=== PATIENT | female | born 1990 | race Caucasian/White ===

== ENCOUNTER 2018-11-18 14:33 | Outpatient (CLI) | payer MEDICAID ==
[~2018-11-18 14:33] MED LIST: HYDR-3965 PO; NO HOME MEDS; PENI500T2 PO; PHEN-786 PO
== END 2018-11-18 23:59 | disposition home or self-care (01) ==
LOC: RAD 14:33
PROVIDERS: ATTEND Family Medicine
DX: R10.2 Pelvic and perineal pain (principal); G40.909 Epilepsy, unspecified, not intractable, without status epilepticus
CPT/HCPCS: 76856

== ENCOUNTER 2019-01-15 14:21 | Outpatient (CLI) | payer MEDICAID | END 2019-01-15 23:59 | disposition home or self-care (01) | LOC: RAD 14:21 | PROVIDERS: ATTEND Family Medicine | DX: G40.409 Other generalized epilepsy and epileptic syndromes, not intractable, without status epilepticus (principal); M79.7 Fibromyalgia; F17.200 Nicotine dependence, unspecified, uncomplicated | CPT/HCPCS: 95816 ==

== ENCOUNTER 2019-10-13 18:22 | Emergency (ER) | payer MEDICAID, OTHER ==
[~2019-10-13] VITALS: Ht 157.5 cm; Wt 68.1 kg
[~2019-10-13 18:22] MED LIST changes: +LIDOcaine 1% W/epiNEPHrine 1:100,000 20ml vial ONE
[2019-10-13] MEDS ORDERED: ibuprofen tablet 400 MG TABLET PO ONE (18:40)
[2019-10-13] MEDS ORDERED: CLIN150C8 PO (19:45)
[2019-10-13 20:06] VITALS: BP 137/87
== END 2019-10-13 20:08 | disposition home or self-care (01) ==
LOC: ER 18:23
DX: L02.31 Cutaneous abscess of buttock (principal); Z98.890 Other specified postprocedural states; Z72.89 Other problems related to lifestyle; Z79.2 Long term (current) use of antibiotics
CPT/HCPCS: 10060; 99283

== ENCOUNTER 2020-11-08 13:20 | Emergency (ER) | payer MEDICAID, OTHER ==
[~2020-11-08] VITALS: Ht 160 cm; Wt 57.3 kg
[~2020-11-08 13:20] MED LIST changes: +CLIN150C8 PO; -LIDOcaine 1% W/epiNEPHrine 1:100,000 20ml vial ONE
[2020-11-08 13:52] LABS: URINE HCG POSITIVE (NEG)
[2020-11-08 13:53] LABS: BASOPHILS % (AUTO) 0.6 % (0-1); EOSINOPHILS % (AUTO) 0.5 % (0-6); HEMATOCRIT 38.3 % (35.0-45.0); LYMPHOCYTES # (AUTO) 2.5 X10'3 (1.1-4.8); LYMPHOCYTES % (AUTO) 43.8 % (21-51); MEAN CORPUSCULAR HEMOGLOBIN 31.7 PG (27.0-31.0); MEAN CORPUSCULAR HGB CONC 33.8 g/dL (33.0-36.5); MEAN CORPUSCULAR VOLUME 93.9 FL (78-98); MEAN PLATELET VOLUME 6.7 FL (7.4-10.4); MONOCYTES # (AUTO) 0.4 X10'3 (0-0.9); MONOCYTES % (AUTO) 6.7 % (2-12); NEUTROPHILS # (AUTO) 2.8 X10'3 (1.8-7.7); NEUTROPHILS % (AUTO) 48.4 % (42-75); PLATELET COUNT 434 X10'3 (140-440); RED BLOOD COUNT 4.08 X10'6 (4.20-5.60); RED CELL DISTRIBUTION WIDTH 12.5 % (11.5-14.5); WHITE BLOOD COUNT 5.7 X10'3 (4.5-11.0)
[2020-11-08 13:54] LABS: CLARITY,URINE SLIGHTLY CLOUDY (Clear); COLOR,URINE STRAW (Yellow); GLUCOSE, URINE NEGATIVE (Neg); KETONES,URINE NEGATIVE (Neg); LEUKOCYTE ESTERASE ,URINE NEGATIVE (Neg); NITRITES, URINE NEGATIVE (Neg); OCCULT BLOOD,URINE SMALL (Neg); PH,URINE 7.5 (4.8-8.0); PROTEIN,URINE NEGATIVE (Neg); UROBILINOGEN,URINE 0.2 E.U/dL (0.2-1.0)
[2020-11-08 13:57] LABS: UA COLLECTION TYPE CLN CATCH MIDSTREAM
[2020-11-08 14:08] LABS: ALANINE AMINOTRANSFERASE 11 U/L (12-78); ALBUMIN/GLOBULIN RATIO 1.1 (1.1-1.5); ALKALINE PHOSPHATASE 77 IU/L (46-116); AMYLASE 55 U/L (25-115); ANION GAP 9 (8-16); ASPARTATE AMINO TRANSFERASE 12 U/L (10-37); BILIRUBIN,TOTAL 0.4 MG/DL (0.1-1.0); BLOOD UREA NITROGEN 10 MG/DL (7-18); BUN/CREATININE RATIO 14.9 (6.6-38.0); CALCIUM 8.5 MG/DL (8.5-10.1); CHLORIDE 105 MMOL/L (99-107); CREATININE 0.67 MG/DL (0.40-0.90); GLUCOSE 111 MG/DL (70-104); LIPASE 60 U/L (73-393); POTASSIUM 3.4 MMOL/L (3.5-5.1); SODIUM 142 MMOL/L (135-145); TOTAL CARBON DIOXIDE 28.4 MMOL/L (24-32); TOTAL PROTEIN 7.6 G/DL (6.4-8.2); eGFR > 90 ML/MIN
[2020-11-08 14:12] LABS: MUCUS STRANDS FEW /LPF (Neg); SQUAMOUS EPITHELIAL CELL,UR FEW /LPF (FEW)
[2020-11-08 14:13] LABS: BACTERIA,URINE 1+ /HPF (Neg); RBC,URINE 0-2 /HPF (0-2); WBC,URINE 0-4 /HPF (0-4)
[2020-11-08] MEDS ORDERED: acetaminophen 325mg tablet PO ONE (15:20)
[2020-11-08 16:02] LABS: BETA HCG,QUANTITATIVE 1327 mIU/ml
[2020-11-08 16:58] LABS: PARTIAL THROMBOPLASTIN TIME 25 SECONDS (22-32)
[2020-11-08] MEDS ORDERED: potassium Cl 20 mEq SR tablet PO ONE (17:10)
[2020-11-08 17:54] VITALS: BP 134/84
== END 2020-11-08 19:39 | disposition home or self-care (01) ==
LOC: ER 13:21
DX: O20.9 Hemorrhage in early pregnancy, unspecified (principal); O26.891 Other specified pregnancy related conditions, first trimester; R10.32 Left lower quadrant pain; E87.6 Hypokalemia; Z3A.01 Less than 8 weeks gestation of pregnancy; Z79.2 Long term (current) use of antibiotics; Z79.899 Other long term (current) drug therapy; Z98.891 History of uterine scar from previous surgery; Z72.89 Other problems related to lifestyle
CPT/HCPCS: 36415; 76801; 76817; 80053; 81001; 81025; 82150; 83690; 84702; 85025; 85610; 85730; 86885; 86900; 86901; 93976; 99284

== ENCOUNTER 2020-11-10 11:55 | Emergency (ER) | payer MEDICAID ==
[~2020-11-10] VITALS: Ht 160 cm; Wt 55.1 kg
[2020-11-10 13:09] LABS: BASOPHILS % (AUTO) 0.7 % (0-1); EOSINOPHILS % (AUTO) 0.6 % (0-6); HEMATOCRIT 38.9 % (35.0-45.0); HEMOGLOBIN 13.1 g/dl (12.0-16.0); LYMPHOCYTES % (AUTO) 32.6 % (21-51); MEAN CORPUSCULAR HEMOGLOBIN 31.7 PG (27.0-31.0); MEAN CORPUSCULAR HGB CONC 33.6 g/dL (33.0-36.5); MEAN CORPUSCULAR VOLUME 94.2 FL (78-98); MEAN PLATELET VOLUME 6.9 FL (7.4-10.4); MONOCYTES # (AUTO) 0.5 X10'3 (0-0.9); MONOCYTES % (AUTO) 8.7 % (2-12); NEUTROPHILS # (AUTO) 3.5 X10'3 (1.8-7.7); NEUTROPHILS % (AUTO) 57.4 % (42-75); PLATELET COUNT 418 X10'3 (140-440); RED BLOOD COUNT 4.14 X10'6 (4.20-5.60); RED CELL DISTRIBUTION WIDTH 12.7 % (11.5-14.5); WHITE BLOOD COUNT 6.1 X10'3 (4.5-11.0)
[2020-11-10 13:20] LABS: PARTIAL THROMBOPLASTIN TIME 26 SECONDS (22-32)
[2020-11-10 13:24] LABS: ALANINE AMINOTRANSFERASE 10 U/L (12-78); ALBUMIN/GLOBULIN RATIO 1.1 (1.1-1.5); ALKALINE PHOSPHATASE 76 IU/L (46-116); ANION GAP 9 (8-16); ASPARTATE AMINO TRANSFERASE 14 U/L (10-37); BILIRUBIN,TOTAL 0.4 MG/DL (0.1-1.0); BLOOD UREA NITROGEN 14 MG/DL (7-18); BUN/CREATININE RATIO 21.5 (6.6-38.0); CHLORIDE 105 MMOL/L (99-107); CREATININE 0.65 MG/DL (0.40-0.90); GLUCOSE 97 MG/DL (70-104); POTASSIUM 3.8 MMOL/L (3.5-5.1); SODIUM 142 MMOL/L (135-145); TOTAL CARBON DIOXIDE 28.2 MMOL/L (24-32); TOTAL PROTEIN 7.6 G/DL (6.4-8.2); eGFR > 90 ML/MIN
[2020-11-10 13:32] LABS: BETA HCG,QUANTITATIVE 801 mIU/ml
[2020-11-10 14:04] LABS: CLARITY,URINE CLOUDY (Clear); COLOR,URINE YELLOW (Yellow); GLUCOSE, URINE NEGATIVE (Neg); KETONES,URINE NEGATIVE (Neg); LEUKOCYTE ESTERASE ,URINE NEGATIVE (Neg); NITRITES, URINE NEGATIVE (Neg); OCCULT BLOOD,URINE LARGE (Neg); PH,URINE 5.5 (4.8-8.0); PROTEIN,URINE NEGATIVE (Neg); UA COLLECTION TYPE CLN CATCH MIDSTREAM; UROBILINOGEN,URINE 0.2 E.U/dL (0.2-1.0)
[2020-11-10 14:10] LABS: MUCUS STRANDS MANY /LPF (Neg); SQUAMOUS EPITHELIAL CELL,UR MANY /LPF (FEW)
[2020-11-10 14:12] LABS: BACTERIA,URINE 1+ /HPF (Neg)
[2020-11-10 14:13] LABS: RBC,URINE 0-2 /HPF (0-2); WBC,URINE 0-4 /HPF (0-4)
[2020-11-10 14:22] VITALS: BP 115/75
== END 2020-11-10 14:23 | disposition home or self-care (01) ==
LOC: ER 11:56
DX: O00.80 Other ectopic pregnancy without intrauterine pregnancy (principal); N93.9 Abnormal uterine and vaginal bleeding, unspecified; R10.32 Left lower quadrant pain; Z3A.00 Weeks of gestation of pregnancy not specified; Z98.890 Other specified postprocedural states; Z72.89 Other problems related to lifestyle; Z79.2 Long term (current) use of antibiotics
CPT/HCPCS: 36415; 80053; 81001; 84702; 85025; 85610; 85730; 99283

== ENCOUNTER 2021-07-20 08:19 | Emergency (ER) | payer SELFPAY ==
[~2021-07-20] VITALS: Ht 157.5 cm; Wt 62.7 kg
[2021-07-20 08:58] VITALS: BP 134/81
== END 2021-07-20 14:18 | disposition left against medical advice (07) ==
LOC: ER 08:20
DX: H92.03 Otalgia, bilateral (principal); Z53.21 Procedure and treatment not carried out due to patient leaving prior to being seen by health care provider

== ENCOUNTER 2023-08-29 09:42 | Emergency (ER) | payer MEDICAID ==
[~2023-08-29] VITALS: Ht 157.5 cm; Wt 49.8 kg
[~2023-08-29 09:42] MED LIST changes: +CLIN-214 PO; -CLIN150C8 PO
[2023-08-29 09:46] VITALS: BP 130/82; PULSE 87; RESP 16; O2SAT 100
[2023-08-29 10:46] VITALS: TEMP 98
== END 2023-08-29 10:48 | disposition home or self-care (01) ==
LOC: ER 09:42
DX: S62.397A Other fracture of fifth metacarpal bone, left hand, initial encounter for closed fracture (principal); X58.XXXA Exposure to other specified factors, initial encounter; Y93.89 Activity, other specified; Y92.89 Other specified places as the place of occurrence of the external cause; Y99.8 Other external cause status; Z79.899 Other long term (current) drug therapy; Z72.89 Other problems related to lifestyle
CPT/HCPCS: 29125; 99283